=== PATIENT | female | born 1995 | race African-American/Black ===

== ENCOUNTER 2016-10-30 12:15 | Emergency (ER) | payer OTHER ==
[~2016-10-30] VITALS: Ht 160 cm; Wt 77.1 kg
[2016-10-30] MEDS ORDERED: MUCI600T34 PO (12:23)
[2016-10-30] MEDS ORDERED: SUDA1TAB3 PO (12:23)
[2016-10-30 14:42] LABS: BASO % 0.2 % (0.0-1.0); EOS # 0.2 K/mm3 (0.0-0.50); EOS % 1.4 % (0.0-3.0); LARGE UNSTAINED CELL # 0.3 K/mm3 (0.0-0.4); LARGE UNSTAINED CELL % 2.1 % (0.0-4.0); LYMPH # 1.7 K/mm3 (1.5-6.5); LYMPH % 13.9 % (24.0-44.0); MEAN CORPUSCULAR HEMOGLOBIN 31.8 pg (27.0-33.0); MEAN CORPUSCULAR VOLUME 93.5 fl (80.0-96.0); MONO # 0.7 K/mm3 (0.0-0.8); MONO % 5.7 % (0.0-5.0); NEUTROPHILS # 9.3 K/mm3 (1.8-7.7); NEUTROPHILS % 76.7 % (36.0-66.0); PLATELET COUNT, AUTOMATED 340 k/mm3 (150-450); RED CELL DISTRIBUTION WIDTH 12.5 % (11.5-14.5); WHITE BLOOD COUNT 12.1 K/mm3 (4.0-10.0)
[2016-10-30 14:56] LABS: CONTROL LINE MONO INT CTR LINE PRESENT
[2016-10-30 15:01] LABS: ANION GAP 10 MEQ/L (8-16); BLOOD UREA NITROGEN 6 MG/DL (7-18); CALCIUM LEVEL 8.8 MG/DL (8.5-10.1); CARBON DIOXIDE LEVEL 23 MEQ/L (21-32); CHLORIDE LEVEL 104 MEQ/L (98-107); CREATININE FOR GFR 0.57 MG/DL (0.55-1.02); GLOMERULAR FILTRATION RATE > 60.0 (>60); GLUCOSE, FASTING 74 MG/DL (70-105); POTASSIUM SERUM 3.9 MEQ/L (3.5-5.1); SODIUM LEVEL 137 MEQ/L (136-145)
[2016-10-30 16:05] VITALS: BP 117/67
== END 2016-10-30 16:06 | disposition home or self-care (01) ==
LOC: M ED 13:40
DX: O98.513 Other viral diseases complicating pregnancy, third trimester (principal); B34.9 Viral infection, unspecified; Z3A.32 32 weeks gestation of pregnancy

== ENCOUNTER 2016-12-11 11:35 | Outpatient (CLI) | payer OTHER ==
[~2016-12-11] VITALS: Ht 160 cm; Wt 77.0 kg
[~2016-12-11 11:35] MED LIST: MUCI600T37 PO; SUDA1TAB3 PO
[2016-12-11] MEDS ORDERED: PRENTAB9 PO (12:00)
[2016-12-11 12:05] VITALS: BP 117/77
== END 2016-12-11 15:08 | disposition home or self-care (01) ==
LOC: M LDO 11:35
PROVIDERS: ATTEND Advanced Practice Midwife
DX: O47.1 False labor at or after 37 completed weeks of gestation (principal); Z3A.38 38 weeks gestation of pregnancy

== ENCOUNTER 2016-12-11 21:06 | Inpatient (IN) | payer OTHER ==
[~2016-12-11] VITALS: Ht 160 cm; Wt 80.0 kg
[~2016-12-11 21:06] MED LIST changes: +PRENTAB9 PO
[2016-12-11] MEDS ORDERED: LR 1,000 ML IV SCH (21:13)
[2016-12-11 21:14] VITALS: BP 140/79
[2016-12-11 22:08] LABS: MEAN CORPUSCULAR HEMOGLOBIN 31.4 pg (27.0-33.0); MEAN CORPUSCULAR HGB CONC 34.5 g/dl (32.0-36.5); RED CELL DISTRIBUTION WIDTH 13.2 % (11.5-14.5); WHITE BLOOD COUNT 16.4 K/mm3 (4.0-10.0)
[2016-12-11 23:44] VITALS: BP 139/82
[2016-12-11] MEDS ORDERED: OXYTOCIN DRIP 30 UNITS in APPROPRIATE DILUENT 1 EA IV SCH (23:51)
[2016-12-12] MEDS ORDERED: DIBUCAINE 1% OINTMENT 30GM TOP PRN
[2016-12-12] MEDS ORDERED: MEASLES,MUMPS,RUBELLA VACCINE INJ (MMR-II) (90707) SC SCH
[2016-12-12] MEDS ORDERED: RHOGAM 300 MCG (1500 IU) INJ (J2790) IM SCH
[2016-12-12] MEDS ORDERED: PROMETHAZINE 25 MG TAB PO PRN
[2016-12-12] MEDS ORDERED: METHYLERGONOVINE MALEATE 0.2 MG/ML VIAL (J2210) IM PRN
[2016-12-12] MEDS ORDERED: LIDOCAINE 1% MDV INJ 50 ML VIAL INFIL ONE
[2016-12-12] MEDS ORDERED: ONDANSETRON 4MG/2ML VIAL (J2405) IV PRN
[2016-12-12 00:21] VITALS: BP 128/70
[2016-12-12] MEDS: IBUPROFEN 800 MG TAB PO PRN ×2 (01:24→14:57)
[2016-12-12 02:37] VITALS: BP 108/51
[2016-12-12] MEDS: ACETAMINOPHEN 500 MG TAB PO PRN (06:02)
[2016-12-12 06:07] VITALS: BP 116/55
[2016-12-12] MEDS: PRENATAL VITAMINS CHEWABLE TABLET PO SCH (07:36)
[2016-12-12] MEDS: DOCUSATE SODIUM 100 MG CAP PO SCH ×2 (07:36→21:00)
--- NOTE | 2016-12-12 07:46 | IPN ---
DATE: 01/11/2017 This and patient requested circumcision of their male . After discussing the risks and benefits of circumcision, the medical and nonmedical indications, the penile block and aftercare. Signed and witnessed consent form. We await the clearance by the plc programmer.
[2016-12-12 18:00] VITALS: BP 114/56
[2016-12-13] MEDS: IBUPROFEN 800 MG TAB PO PRN (05:51)
[2016-12-13 06:03] VITALS: BP 111/59
[2016-12-13] MEDS: DOCUSATE SODIUM 100 MG CAP PO SCH (08:28)
[2016-12-13] MEDS: PRENATAL VITAMINS CHEWABLE TABLET PO SCH (08:28)
[2016-12-13] MEDS: ACETAMINOPHEN 500 MG TAB PO PRN (08:29)
[2016-12-13] MEDS ORDERED: COLA100C5 PO (08:51)
[2016-12-13] MEDS ORDERED: TYLE500T78 PO (08:52)
[2016-12-13] MEDS ORDERED: IBUP-1114 PO (08:53)
[2016-12-13] MEDS ORDERED: NUPE1OIN2 TOP (08:54)
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
== END 2016-12-13 12:45 | disposition home or self-care (01) | DRG 775 ==
LOC: M LDO 21:06 → M LDI 21:11 → M OBS 12-12 02:34
PROVIDERS: ADMIT Obstetrics & Gynecology; ATTEND Obstetrics & Gynecology
PROC: 10E0XZZ Delivery of Products of Conception, External Approach (ICD-10-PCS; principal; 2016-12-11)
PROC: 0HQ9XZZ Repair Perineum Skin, External Approach (ICD-10-PCS; 2016-12-11)
DX: O70.0 First degree perineal laceration during delivery (principal); Z37.0 Single live birth; Z3A.38 38 weeks gestation of pregnancy

== ENCOUNTER 2017-11-14 18:12 | Emergency (ER) | payer OTHER | END 2017-11-14 19:13 | disposition home or self-care (01) | LOC: M ED 18:12 | DX: M25.552 Pain in left hip (principal); F33.9 Major depressive disorder, recurrent, unspecified | CPT/HCPCS: 73502 ==

== ENCOUNTER 2018-06-18 22:13 | Emergency (ER) | payer OTHER ==
[~2018-06-18] VITALS: Ht 160 cm; Wt 61.4 kg
[~2018-06-18 22:13] MED LIST changes: +COLA100C5 PO; +IBUP-1114 PO; +NUPE1OIN2 TOP; +TYLE500T78 PO
[2018-06-18] MEDS ORDERED: IBUPROFEN 600 MG TAB PO ONE (22:30)
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
[2018-06-18] MEDS ORDERED: IBUP-1022 PO (23:36)
[2018-06-18] MEDS ORDERED: CYCL10TA PO (23:36)
[2018-06-18] MEDS ORDERED: CYCLOBENZAPRINE 10 MG TAB PO ONE (23:45)
[2018-06-18 23:47] VITALS: BP 87/60
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
== END 2018-06-18 23:48 | disposition home or self-care (01) ==
LOC: M ED 22:13
DX: S00.03XA Contusion of scalp, initial encounter (principal); S20.229A Contusion of unspecified back wall of thorax, initial encounter; W01.0XXA Fall on same level from slipping, tripping and stumbling without subsequent striking against object, initial encounter; Y92.410 Unspecified street and highway as the place of occurrence of the external cause

== ENCOUNTER 2018-06-23 07:28 | Emergency (ER) | payer OTHER ==
[~2018-06-23] VITALS: Ht 160 cm; Wt 65.9 kg
[~2018-06-23 07:28] MED LIST changes: +CYCL10TA PO; +IBUP-1022 PO
--- NOTE | 2018-06-23 09:40 | REP ---
PELVIC SONOGRAPHY: HISTORY: History of ovarian cyst. Pelvic discomfort. FINDINGS: Transabdominal and endovaginal scanning are performed. The urinary bladder is poorly filled for the transabdominal images. The uterus is retroverted measuring 7.7 x 4.2 x 5.4 cm. Endometrial echo is 1.4 cm thick. There is moderate free fluid in the cul-de-sac. This contains a few low level echoes. The right ovary measures 4.0 x 2.5 x 4.7 cm. Its Doppler flow is normal. There is a 2.7 x 2.5 x 1.8 cm hypoechoic cyst in the right ovary consistent with a hemorrhagic cyst. Doppler resistive index is 0.42 for the right ovary. Left ovary may is normal measuring 2.5 x 1.7 x 2.3 cm. Its Doppler flow is normal, resistive index 0.60. IMPRESSION: Retroflexed uterus. Moderate free fluid in the cul-de-sac. 2.7 cm hypoechoic right ovarian cyst seen. Otherwise negative. Beta hCG status is not known. Clinical and possibly, sonographic followup advised. Electronically Signed by Corona Monteiro MD 06/23/2018 10:58 A
[2018-06-23] MEDS ORDERED: BACT800T5 PO (09:41)
[2018-06-23 09:44] VITALS: BP 99/56
--- NOTE | 2018-06-24 12:35 | ED PDOC ---
Post-Departure Follow-Up ft judi fp faxed formal report of pelvic us for fu Yung Doshi MD Jun 24, 2018 12:35
== END 2018-06-23 09:47 | disposition home or self-care (01) ==
LOC: M ED 07:28
DX: N30.00 Acute cystitis without hematuria (principal); N83.209 Unspecified ovarian cyst, unspecified side

== ENCOUNTER 2018-06-25 07:48 | Emergency (ER) | payer OTHER ==
[~2018-06-25] VITALS: Ht 160 cm; Wt 65.9 kg
[~2018-06-25 07:48] MED LIST changes: +BACT800T5 PO
[2018-06-25] MEDS ORDERED: NS 1,000 ML IV ONE (08:15)
[2018-06-25] MEDS ORDERED: MORPHINE 4 MG/ML 1ML VIAL/SYRINGE (J2270) IV PRN (08:15)
[2018-06-25] MEDS ORDERED: ONDANSETRON 4MG/2ML VIAL (J2405) IV ONE (08:15)
[2018-06-25] MEDS ORDERED: ACETAMINOPHEN 325 MG/10.15 ML UDC PO ONE (08:30)
[2018-06-25 09:01] LABS: BASO % 0.1 % (0.0-1.0); HEMOGLOBIN 13.5 g/dl (12.0-15.5); LYMPH # 0.8 10^3/uL (1.5-6.5); LYMPH % 11.1 % (24.0-44.0); MEAN CORPUSCULAR HEMOGLOBIN 30.1 pg (27.0-33.0); MEAN CORPUSCULAR HGB CONC 34.6 g/dl (32.0-36.5); MEAN CORPUSCULAR VOLUME 86.9 fl (80.0-96.0); MONO # 0.5 10^3/uL (0.0-0.8); MONO % 7.7 % (0.0-5.0); NEUTROPHILS # 5.6 10^3/uL (1.8-7.7); NEUTROPHILS % 80.7 % (36.0-66.0); PLATELET COUNT, AUTOMATED 245 10^3/uL (150-450); RED BLOOD COUNT 4.49 10^6/uL (4.00-5.40); WHITE BLOOD COUNT 6.9 10^3/uL (4.0-10.0)
[2018-06-25 09:29] LABS: HCG, SERUM QUALITATIVE NEGATIVE (NEGATIVE)
[2018-06-25 09:31] LABS: ALBUMIN 4.2 GM/DL (3.2-5.2); ALT/SGPT 16 U/L (12-78); BILIRUBIN,DIRECT 0.2 MG/DL (0.0-0.2); BILIRUBIN,TOTAL 0.9 MG/DL (0.2-1.0); BLOOD UREA NITROGEN 10 MG/DL (7-18); CALCIUM LEVEL 9.1 MG/DL (8.5-10.1); CARBON DIOXIDE LEVEL 22 MEQ/L (21-32); CHLORIDE LEVEL 103 MEQ/L (98-107); CREATININE FOR GFR 1.02 MG/DL (0.55-1.30); GLOMERULAR FILTRATION RATE > 60.0 (>60); GLUCOSE, FASTING 87 MG/DL (70-100); LIPASE 119 U/L (73-393); POTASSIUM SERUM 3.7 MEQ/L (3.5-5.1); SODIUM LEVEL 134 MEQ/L (136-145); TOTAL PROTEIN 8.4 GM/DL (6.4-8.2)
[2018-06-25] MEDS ORDERED: ISOVUE-370 76% 100ML VIAL (Q9967) As Ordered ONE (09:56)
[2018-06-25] MEDS ORDERED: NORCOTAB PO (10:58)
[2018-06-25] MEDS ORDERED: IBUP80TA PO (10:58)
[2018-06-25 11:01] VITALS: BP 93/44
--- NOTE | 2018-06-25 11:02 | REP ---
CT ABDOMEN AND PELVIS WITH IV CONTRAST: TECHNIQUE: Axial contrast enhanced images from the lung bases to the pubic symphysis using 100 mL Isovue 370 intravenous contrast material with multiplanar reformations. Visualized lung bases demonstrate a calcified granuloma in the right lower lobe just above the diaphragm. The liver demonstrates focal fatty infiltration along the fissure for the ligamentum teres. Spleen, adrenals, pancreas, and kidneys are unremarkable. There is no abdominal aortic aneurysm. I see no adenopathy. There is no free air. There is no appendicitis or bowel wall thickening. In the pelvis there is an oval right ovarian cyst 3 cm in maximum diameter. Left ovary appears grossly unremarkable. There is moderate dense fluid in the cul-de-sac on the right likely representing hemorrhagic fluid from ruptured ovarian cyst. The urinary bladder appears unremarkable. IMPRESSION: Right ovarian cyst 3 cm in diameter with adjacent complex free fluid in the right pelvis. No evidence of appendicitis or other acute finding. Electronically Signed by Darin Browning MD 06/25/2018 07:56 P
[2018-06-25] MEDS ORDERED: ZOFR4TAB14 PO (11:06)
== END 2018-06-25 11:12 | disposition home or self-care (01) ==
LOC: M ED 07:48
DX: N83.201 Unspecified ovarian cyst, right side (principal)
CPT/HCPCS: 74177; 80048; 80076; 83605; 83690; 84703; 85025; 87040; 96361; 96374; 96375; 99284; J2270; J2405; Q9967

== ENCOUNTER 2018-07-20 18:20 | Emergency (ER) | payer OTHER ==
[~2018-07-20] VITALS: Ht 160 cm; Wt 61.4 kg
[~2018-07-20 18:20] MED LIST changes: +IBUP80TA PO; +NORCOTAB PO; +ZOFR4TAB14 PO
[2018-07-20 18:21] VITALS: BP 104/58
[2018-07-20] MEDS ORDERED: ONDANSETRON 4 MG ORAL DISINTEGRATING TAB (Q0162 PER 1MG) PO ONE (18:45)
[2018-07-20] MEDS ORDERED: PROM1SUP2 PR (18:53)
[2018-07-20] MEDS ORDERED: ZOFR4TAB16 PO (18:55)
== END 2018-07-20 19:55 | disposition home or self-care (01) ==
LOC: M ED 18:20
DX: O26.899 Other specified pregnancy related conditions, unspecified trimester (principal); Z3A.00 Weeks of gestation of pregnancy not specified
CPT/HCPCS: 84702; 99282; Q0162

== ENCOUNTER 2018-08-15 15:56 | Emergency (ER) | payer OTHER ==
[~2018-08-15] VITALS: Ht 160 cm; Wt 64.1 kg
[~2018-08-15 15:56] MED LIST changes: +PROM1SUP2 PR; +ZOFR4TAB16 PO
[2018-08-15 16:06] VITALS: BP 131/65
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
[2018-08-15] MEDS ORDERED: IBUP-1022 PO (17:02)
[2018-08-15] MEDS ORDERED: ROBA500T PO (17:02)
== END 2018-08-15 17:06 | disposition home or self-care (01) ==
LOC: M ED 15:56
DX: S16.1XXA Strain of muscle, fascia and tendon at neck level, initial encounter (principal); V49.49XA Driver injured in collision with other motor vehicles in traffic accident, initial encounter; Y92.410 Unspecified street and highway as the place of occurrence of the external cause

== ENCOUNTER 2018-09-25 15:15 | Emergency (ER) | payer OTHER ==
[~2018-09-25] VITALS: Ht 160 cm; Wt 63.6 kg
[~2018-09-25 15:15] MED LIST changes: +HYDR-3715 PO; -NORCOTAB PO; +ROBA500T PO
[2018-09-25] MEDS ORDERED: PREN200C PO (15:19)
[2018-09-25 16:04] LABS: BASO % 0.2 % (0.0-1.0); EOS % 0.6 % (0.0-3.0); HEMATOCRIT 38.7 % (36.0-47.0); HEMOGLOBIN 13.3 g/dl (12.0-15.5); LYMPH % 47.3 % (24.0-44.0); MEAN CORPUSCULAR HEMOGLOBIN 30.8 pg (27.0-33.0); MEAN CORPUSCULAR HGB CONC 34.4 g/dl (32.0-36.5); MEAN CORPUSCULAR VOLUME 89.6 fl (80.0-96.0); MONO # 0.5 10^3/uL (0.0-0.8); MONO % 7.3 % (0.0-5.0); NEUTROPHILS # 2.8 10^3/uL (1.8-7.7); NEUTROPHILS % 44.4 % (36.0-66.0); PLATELET COUNT, AUTOMATED 252 10^3/uL (150-450); RED BLOOD COUNT 4.32 10^6/uL (4.00-5.40); WHITE BLOOD COUNT 6.3 10^3/uL (4.0-10.0)
[2018-09-25 16:28] LABS: BLOOD UREA NITROGEN 8 MG/DL (7-18); CALCIUM LEVEL 8.9 MG/DL (8.5-10.1); CARBON DIOXIDE LEVEL 26 MEQ/L (21-32); CHLORIDE LEVEL 107 MEQ/L (98-107); CREATININE FOR GFR 0.73 MG/DL (0.55-1.30); GLOMERULAR FILTRATION RATE > 60.0 (>60); GLUCOSE, FASTING 84 MG/DL (70-100); HCG, SERUM QUANTITATIVE 7 MIU/ML; POTASSIUM SERUM 3.7 MEQ/L (3.5-5.1); SODIUM LEVEL 138 MEQ/L (136-145)
--- NOTE | 2018-09-25 16:44 | REP ---
Pelvic ultrasound including transabdominal, endovaginal and Doppler ultrasound assessment: The patient complains of pelvic pain. The uterus is retroflexed and normal size measuring 8.6 x 4.9 x 6.0 cm. The myometrium is unremarkable. The endometrium is echogenic and thickened measuring up to 14.6 mm. There is a mobile material in the endometrial canal. There is no Doppler color flow in the endometrium. Therefore, these findings may represent a large endometrial clot. Right ovary: The right ovary measures 3.1 x 2.1 x 2.1 cm. There is a 1.8, 1.6 x 1.2 cm hemorrhagic follicle. There is vascular flow with the Doppler resistive index of the parenchymal arteries measuring 0.45. Left ovary: The left ovary measures 2.9 x 1.8 x 2.6 cm. There is a 1.7 x 1-0.2 x 1.6 hemorrhagic follicle. There is vascular flow with the Doppler resistive index of the parenchymal arteries measuring 0.54. There is a small volume of pelvic free fluid. Impression: Retroverted uterus. Thickened endometrium versus endometrial mass, likely an endometrial clot as discussed. Bilateral ovarian hemorrhagic follicles. Vascular flow in both ovaries. Small volume of pelvic fluid. Electronically Signed by Darin Quiroga MD 09/25/2018 04:36 P
[2018-09-25 17:16] VITALS: BP 115/58
== END 2018-09-25 17:17 | disposition home or self-care (01) ==
LOC: M ED 15:15
DX: R93.89 Abnormal findings on diagnostic imaging of other specified body structures (principal); Z87.42 Personal history of other diseases of the female genital tract; M54.9 Dorsalgia, unspecified

== ENCOUNTER 2018-11-12 18:07 | Emergency (ER) | payer OTHER ==
[~2018-11-12] VITALS: Ht 160 cm; Wt 63.6 kg
[~2018-11-12 18:07] MED LIST changes: +PREN200C PO
[2018-11-12] MEDS ORDERED: PREN29CH2 PO (18:22)
[2018-11-12 19:26] LABS: BASO % 0.4 % (0.0-1.0); EOS # 0.1 10^3/uL (0.0-0.50); EOS % 0.8 % (0.0-3.0); HEMATOCRIT 39.6 % (36.0-47.0); HEMOGLOBIN 13.7 g/dl (12.0-15.5); LYMPH % 37.8 % (24.0-44.0); MEAN CORPUSCULAR HEMOGLOBIN 30.4 pg (27.0-33.0); MEAN CORPUSCULAR HGB CONC 34.6 g/dl (32.0-36.5); MEAN CORPUSCULAR VOLUME 87.8 fl (80.0-96.0); MONO # 0.6 10^3/uL (0.0-0.8); MONO % 6.9 % (0.0-5.0); NEUTROPHILS # 4.3 10^3/uL (1.8-7.7); NEUTROPHILS % 53.8 % (36.0-66.0); PLATELET COUNT, AUTOMATED 286 10^3/uL (150-450); RED BLOOD COUNT 4.51 10^6/uL (4.00-5.40)
[2018-11-12 19:53] LABS: BLOOD UREA NITROGEN 9 MG/DL (7-18); CALCIUM LEVEL 9.2 MG/DL (8.5-10.1); CARBON DIOXIDE LEVEL 27 MEQ/L (21-32); CHLORIDE LEVEL 107 MEQ/L (98-107); CREATININE FOR GFR 0.79 MG/DL (0.55-1.30); GLOMERULAR FILTRATION RATE > 60.0 (>60); GLUCOSE, FASTING 79 MG/DL (70-100); HCG, SERUM QUANTITATIVE 11 MIU/ML; POTASSIUM SERUM 3.9 MEQ/L (3.5-5.1); SODIUM LEVEL 140 MEQ/L (136-145)
--- NOTE | 2018-11-12 20:58 | REP ---
Clinical: Vaginal bleeding for dating and viability. Technique: Transabdominal and transvaginal first trimester obstetrical ultrasound with color Doppler evaluation. Findings: Heterogeneous anteverted uterus measures 8.7 x 4.4 x 4.9 cm. No intrauterine identified. A moderate amount of free fluid is noted within the pelvis and posterior cul-de-sac. The bilateral ovaries are normal in appearance and vascularity without torsion. Left ovary measures 3.2 x 1.6 x 2.1 cm; RI 0.48. The right ovary measures 2.7 x 1.3 x 1.3 cm; RI 0.47. No obvious pelvic mass lesion identified. Impression: 1. No intrauterine . 2. Moderate amount of free fluid in the pelvis. 3. Differential diagnosis includes early as well as missed spontaneous and ectopic which cannot be excluded. Correlation with serial HCG levels recommended and repeat evaluation may be warranted Electronically Signed by Teto Richter MD 11/12/2018 08:50 P
[2018-11-12 21:25] VITALS: BP 128/56
== END 2018-11-12 21:50 | disposition home or self-care (01) ==
LOC: M ED 18:07
DX: O20.0 Threatened abortion (principal); Z87.59 Personal history of other complications of pregnancy, childbirth and the puerperium; Z79.899 Other long term (current) drug therapy

== ENCOUNTER 2019-06-18 21:56 | Emergency (ER) | payer OTHER ==
[~2019-06-18] VITALS: Ht 154.9 cm; Wt 67.1 kg
[~2019-06-18 21:56] MED LIST changes: +PREN29CH2 PO
[2019-06-18 21:57] VITALS: BP 118/66
[2019-06-19] MEDS ORDERED: FLAG500T PO (03:55)
[2019-06-19 05:36] LABS: CHLAMYDIA DNA AMPLIFICATION NEGATIVE (NEGATIVE); GC DNA AMPLIFICATION NEGATIVE (NEGATIVE)
== END 2019-06-19 04:09 | disposition home or self-care (01) ==
LOC: M ED 21:56
DX: O98.511 Other viral diseases complicating pregnancy, first trimester (principal); N76.0 Acute vaginitis; A63.0 Anogenital (venereal) warts; Z3A.10 10 weeks gestation of pregnancy

== ENCOUNTER 2019-12-01 19:05 | Outpatient (CLI) | payer OTHER ==
[~2019-12-01 19:05] MED LIST changes: +CYCL-707 PO; -CYCL10TA PO; +FLAG500T PO
[2019-12-01] MEDS ORDERED: ACETAMINOPHEN 500 MG TAB PO PRN (20:00)
--- NOTE | 2019-12-01 20:09 | IPNPDOC ---
Text Note Date of Service The patient was seen on 12/01/19. NOTE Patient is 24yo at 34wks by patient report. C/o fall on abdomen from tripping at 1800. Hit her knees and arms and right side of head. No LOC. Abdomen does not hurt but has felt tight. No contractions. No loss of fluid or bleeding. Good movement. PE: VS WNL GEN NAD, Comfortable ABD: gravid, NT SVE: Deferred. Perineum dry. FHT: Category 1, 140s, reactive, no decels. contractions x1. A/P: Fetus reassuring. Patient not in labor and no rupture of membranes. Will check an US for placenta, BPP, and GUERA and check a CBC and KB. Will monitor for 4hrs post fall. Caterina Quiroga MD Dec 01, 2019 20:09
[2019-12-01 20:31] LABS: HEMATOCRIT 33.1 % (36.0-47.0); HEMOGLOBIN 11.3 g/dl (12.0-15.5); MEAN CORPUSCULAR HEMOGLOBIN 29.7 pg (27.0-33.0); MEAN CORPUSCULAR HGB CONC 34.1 g/dl (32.0-36.5); MEAN CORPUSCULAR VOLUME 87.1 fl (80.0-96.0); PLATELET COUNT, AUTOMATED 280 10^3/uL (150-450); WHITE BLOOD COUNT 9.9 10^3/uL (4.0-10.0)
--- NOTE | 2019-12-01 21:30 | REPVR ---
PROCEDURE INFORMATION: Exam: US Biophysical Profile Without Non-Stress Test Exam date and time: 12/01/2019 9:06 PM Age: 24 years old Clinical indication: Injury or trauma; Fall; Injury indication: Tripped and fell hitting stomach; Injury date: Today; ; Additional info: R/O abruption TECHNIQUE: Imaging protocol: US biophysical profile without non-stress testing. COMPARISON: US PELVIC NON-OB COMPLETE 09/25/2018 4:05 PM FINDINGS: Heart rate: 147 bpm. Presentation: Single live intrauterine fetus in vertex position. Placenta: Placenta is anterior without evidence of abruption. Amniotic fluid index: 8.8 cm. BIOPHYSICAL PROFILE: Breathin/2 Gross body movements: 2/2 tone: 2/2 Qualitative amniotic fluid: 2/2 Biophysical Profile Score: 8/8 DOPPLER: Umbilical artery Doppler: Umbilical cord peak systolic velocity is 38.8 cm/s. Resistive index is 0.65. SD ratio is 2.8. IMPRESSION: 1. Normal biophysical profile. 2. No evidence of placental abruption. Electronically signed by: Herman Loredo On 12/01/2019 21:30:29 PM
== END 2019-12-01 22:10 | disposition home or self-care (01) ==
LOC: M LDO 19:05
PROVIDERS: ATTEND Obstetrics & Gynecology
DX: Z04.3 Encounter for examination and observation following other accident (principal); W19.XXXA Unspecified fall, initial encounter; O26.893 Other specified pregnancy related conditions, third trimester; R10.30 Lower abdominal pain, unspecified; Z3A.34 34 weeks gestation of pregnancy; Y92.009 Unspecified place in unspecified non-institutional (private) residence as the place of occurrence of the external cause; Y99.8 Other external cause status
CPT/HCPCS: 36415; 59025; 76815; 76819; 76820; 85027; 85460; G0378; G0463

== ENCOUNTER 2020-01-01 11:56 | Inpatient (IN) | payer OTHER ==
[~2020-01-01] VITALS: Ht 157.5 cm; Wt 83.6 kg
[2020-01-01] VITALS (13 sets, daily range): BP systolic 107–133; BP diastolic 57–65
[2020-01-01] MEDS ORDERED: LACTATED RINGER'S 1000 ML IV STA (12:18)
[2020-01-01] MEDS ORDERED: PROMETHAZINE INJ 25 MG/ML VIAL (J2550) IV ONE (12:30)
[2020-01-01] MEDS ORDERED: BUTORPHANOL 2 MG/ML INJ (J0595) IV ONE (12:30)
[2020-01-01 12:48] LABS: BASO % 0.2 % (0.0-1.0); EOS % 0.2 % (0.0-3.0); HEMATOCRIT 34.8 % (36.0-47.0); HEMOGLOBIN 11.7 g/dl (12.0-15.5); LYMPH % 18.9 % (24.0-44.0); MEAN CORPUSCULAR HGB CONC 33.6 g/dl (32.0-36.5); MEAN CORPUSCULAR VOLUME 86.4 fl (80.0-96.0); MONO # 0.9 10^3/uL (0.0-0.8); MONO % 8.4 % (0.0-5.0); NEUTROPHILS # 7.6 10^3/uL (1.5-8.5); NEUTROPHILS % 71.3 % (36.0-66.0); PLATELET COUNT, AUTOMATED 265 10^3/uL (150-450); RED BLOOD COUNT 4.03 10^6/uL (4.00-5.40); WHITE BLOOD COUNT 10.6 10^3/uL (4.0-10.0)
--- NOTE | 2020-01-01 13:03 | HPEPDOC ---
Obstetrical History & Physical General Date of Admission Jan 01, 2020 at 12:09 History of Present Illness S: Erika is a 24yo at 38+5wks gestation, EDC [id number] by LMP/1TUS, who is being admitted to D for labor. She reports contractions since midnight, but became regular and painful around 0700 this AM. She endorses +FM, denies LOF/VB. Blood Type O Positive GBS Negative complicated by Anxiety, overweight, excessive weight gain of 44lbs. OB History: SAB x2; 09/2016 at 38 weeks; pelvis tested to 7lbs 5oz, uncomplicated. Chief Complaint: Contractions, term Information Provided By: Patient Age: 24 : 4 Term: 1 Pre-term: 0 Abortions: 2 Livin Care Care: Good Care Number of Visits: 6 Dating Final EDC: Jan 10, 2020 Final EDC for Daily Update: Jan 10, 2020 Final EDC by: LMP LMP: Apr 05, 2019 Antepartum Course Diagnos(e)s Excessive Weight Gain Height (inches): 62 Pre- weight (lbs.): 140 Admission Weight (lbs.): 184 Change in Weight (lbs.): 44 Past Medical History Past Obstetrical History : Past Obstetrical History: Multigravida DIGITAL PROJECT COORDINATOR History: Human papillomavirus(HPV) Past Medical History Medical History Overweight Surgical History: Other (Bunionectomy) Family History Significant Family History: No pertinent family hx Social History Marital Status: Family situation: Spouse/partner home Psychosocial History: Anxiety * Smoker: non-smoker Alcohol: Denies Drugs: denies Imunizations Tdap status: current Influenza Status: current Allergies Coded Allergies: No Known Allergies (Unverified , 08/15/18) Medications Scheduled Metronidazole (Flagyl) 500 Mg Tablet, 500 MG PO BID No115/Iron/Folic Acid ( 19 Chewable Tablet) 1 Each Tab.chew, 1 TAB PO DAILY Physical Examination Physical Examination GENERAL: Alert and oriented times three. ABDOMEN: Gravid and non-tender to touch. FETUS: Is vertex (VTX) by sterile vaginal examination (SVE). HEART RATE: Regular rate. LUNGS: Observed normal, nonlabored breathing. EXTREMITIES: No edema. Other physical findings O: VSS, afebrile, normotensive FHR 140s, moderate variability, + accels, few variable decelerations CTX by TOCO: unable to asses d/t pt standing. Pt is having regular contractions that are mild to palpation. VE: /-3 Laboratory Data 24H LABS Laboratory Tests 2 01/01/20 12:33: Serology Scanned Report Hepatitis B Testing Pertinent Laboratoy Data Blood Type: O+ RBC Antibody Screen: Negative HIV: Negative Hepatitis B: Negative Rapid Plasma Reagin: Nonreactive Rubella: Immune Varicella: Immune Chlamydia/Gonorrhea: Negative Group B Streptococcus: Negative Cystic Fibrosis: Negative Anatomy Ultrasound Ultrasound Date: Aug 24, 2019 Placenta Location: Anterior Normal Anatomy: Yes Vaginal Examination Presentation: Cephalic presentation Assessment/Plan Assessment A: 24yo at 38+5wks, early labor with regular painful contractions. Category II FHT d/t few variables when standing. GBS negative, O Positive Blood Type. Plan P: Admit to LND, consent for labor, augmentation, delivery, pain medication options, and c/s if appropriate PIV start, admission labs drawn PO and IV hydration IV pain meds; can have epidural if desired when in active labor Expectant management at this time CEFM x2 Close monitoring of maternal/ status Consult with OB if indicated Anticipate KARON ROSE CNM Jan 01, 2020 13:03
--- NOTE | 2020-01-01 17:22 | IPNPDOC ---
Obstetrical Progress Note Date of Service Jan 01, 2020 Subjective S: Erika is a 24yo at 38+5wks, admitted earlier this afternoon for early labor, has received 1x dose of stadol and phenergan for pain control, no desiring more medication. She continues to have regular, painful contractions. Objective O: VSS, afebrile, normotensive FHR 140s, moderate variability, + accels, variable, late and prolonged decelerations noted. First deceleration noted when pt repositioned for cervical exam; she was supine, but repositioned to right lateral; that deceleration was followed by two more decelerations during exam and repositioned to hands and knees, raz to 65. IV bolus and O2 started and FHR recovered. Fetus did recover, but noted to have more decelerations and a prolonged. Interventions continued and fetus tolerating hands/knees and left lateral. VE: 7/80/-2, cervix noted to be swelling; reexamined and AROM at 1655 (clear flu id), followed by FSE and IUPC placement. CTX: q2 Vital Signs Date Time Temp Pulse Resp B/P (MAP) Pulse Ox O2 Delivery O2 Flow Rate FiO2 01/01/20 15:14 97.3 80 18 114/57 (76) Assessment Heart Rate Tracing: Category II Sterile Vaginal Examination Postion/Presentation: Cephalic presentation Assessment and Plan Additional Comments A: 24yo Go at 38+5wks, active labor, cervix swollen d/t bearing down during contractions. Internals placed. Pt status and strip reviewed with Dr. Sandra. Category II FHT with resuscitative measures ongoing. P: Close maternal/ monitoring CEFM x2 Amnioinfusion Consult with OB Anticipate , but C/S if appropriate KARON ROSE CNM Jan 01, 2020 17:22
[2020-01-01] MEDS ORDERED: OXYTOCIN 30 UNITS IN 0.9% NaCl 500ML IV BAG (J2590) As Ordered ONE (17:39)
[2020-01-01 18:00] LABS: CORD GAS ABE A -7.1; CORD GAS ABE V -8.1; CORD GAS HCO3 A 22.1 MEQ/L; CORD GAS HCO3 V 18.9 MEQ/L; CORD GAS O2 SAT A 37.2 %; CORD GAS O2 SAT V 76.7 %; CORD GAS PCO2 A 61.4 mmHg; CORD GAS PH A 7.174 UNITS; CORD GAS PH V 7.251 UNITS; CORD GAS PO2 A 21.2 mmHg; CORD GAS PO2 V 37.7 mmHg; CORD GAS SBC A 17.5 MEQ/L; CORD GAS SBC V 17.6 MEQ/L; CORD GAS TCO2 V 20.3 MEQ/L
[2020-01-01] MEDS ORDERED: IBUPROFEN 600MG TAB PO PRN (18:45)
[2020-01-01] MEDS ORDERED: DOCUSATE SODIUM 100 MG CAP PO PRN (18:45)
[2020-01-01] MEDS ORDERED: ACETAMINOPHEN TAB 650MG DOSE (2X325MG) PO PRN (18:45)
--- NOTE | 2020-01-01 18:45 | DNPDOC ---
[facility] Delivery Note Delivery Note DATE OF DELIVERY: 01/01/2020 at 1743 PREDELIVERY DIAGNOSIS: 38+5wks gestation and labor. Persistent Category II FHT POST DELIVERY DIAGNOSIS: Delivered. PROCEDURE: DOCKING SAW OPERATOR: LANE Rose ANESTHESIA: None ESTIMATED BLOOD LOSS: 150 mL. FINDINGS: 7 pound 7 ounce (3380g) Male , Score 8/9, nuchal cord times one (tight). DELIVERY SUMMARY: Erkia is a 24yo G4 now P2022 s/p labor complicated by persistent Category II FHT d/t deep variables. Upon noticing another prolonged deceleration after amnioinfusion started, I entered room for a progress exam and head noted to be at +2 station, full dilatation. Pt was repositioned and prepped for immediate delivery. I requested Dr. Sandra at the bedside d/t variables with slow return to baseline and in the event I needed assistance to expedite delivery. Once pt pushed, she had strong, effective pushes and delivered a viable male infant over a protected perineum. head delivered REDD and restituted to LOT. Tight nuchal noted and unable to reduce at this time; Right anterior shoulder delivered with ease, followed by left posterior shoulder, then remainder of body delivered and nuchal reduced via somersault maneuver. placed on maternal where he was dried and stimulated. Cord was clamped x2 and cut by myself so could be taken to the warmer for assessment, but quickly perked up and had a strong, lusty cry. was 8/9. Cord gases and cord blood collected. Placenta delivered spontaneously and appeared intact, 3VC. Pitocin bolus started and fundus firm with minimal bleeding. Upon inspection of vagina, cervix, and perineum, only a very minor abrasion on right labia noted, good hemostasis. Family bonding well; anticipate uncomplicated PP course. KARON ROES CNM Jan 01, 2020 18:45
[2020-01-01] MEDS ORDERED: OXYTOCIN DRIP 30 UNITS in IV 1 EA IV SCH (19:30)
[2020-01-01] MEDS: IBUPROFEN 800 MG TAB PO PRN (19:32)
[2020-01-01] MEDS: ACETAMINOPHEN 500 MG TAB PO PRN (20:26)
[2020-01-02 06:00] VITALS: BP 119/69
[2020-01-02] MEDS: PRENATAL VITAMINS CHEWABLE TABLET PO SCH (08:57)
--- NOTE | 2020-01-02 09:02 | IPN ---
DATE: 01/02/2020 day #1. 24-year-old 4, now para 3, admitted at 38 and 5 weeks of gestation in active labor, spontaneous vaginal delivery of a live male infant, 7 pounds 7 ounces, 3380 grams, Apgars of 8 and 9 at one and five minutes respectively. Blood pressure today is 119/69, respirations 17, pulse 80, temperature is 98.0. Admitting hemoglobin 11.7, hematocrit 34.8 and platelets to 265. Arterial blood gas was 7.17, base excess -7.1; venous pH was 7.25, base excess -8.1. We discussed phlebitis, cystitis, mastitis, endometritis and cellulitis; diet, exercise and pain management; perineal, breast and wound care. Presently, she is waiting for neonatology to evaluate the baby and clear the baby for circumcision. Breast-feeding is going well. Plans are for discharge tomorrow morning. Medications were dispensed at [facility]. All questions were answered. 20-minute discussion.
[2020-01-02 18:00] VITALS: BP 116/57
[2020-01-02] MEDS: IBUPROFEN 800 MG TAB PO PRN (23:32)
[2020-01-03 06:18] VITALS: BP 107/53
[2020-01-03] MEDS: PRENATAL VITAMINS CHEWABLE TABLET PO SCH (08:49)
[2020-01-03] MEDS: ACETAMINOPHEN 500 MG TAB PO PRN ×2 (08:50→17:42)
[2020-01-03 18:00] VITALS: BP 117/74
== END 2020-01-03 18:00 | disposition home or self-care (01) | DRG 807 ==
LOC: M LDO 11:56 → M LDI 12:09 → M OBS 20:57
PROVIDERS: ADMIT Registered Nurse Maternal Newborn; ATTEND Registered Nurse Maternal Newborn
PROC: 10E0XZZ Delivery of Products of Conception, External Approach (ICD-10-PCS; principal; 2020-01-01)
DX: O69.1XX0 Labor and delivery complicated by cord around neck, with compression, not applicable or unspecified (principal); Z37.0 Single live birth; Z3A.39 39 weeks gestation of pregnancy; O26.00 Excessive weight gain in pregnancy, unspecified trimester

== ENCOUNTER → 2021-05-19 | Outpatient (CLI) | payer OTHER | LOC: M LABSMTC 09:13 | PROVIDERS: ATTEND Anesthesiology | DX: Z01.812 Encounter for preprocedural laboratory examination (principal); Z20.822 Contact with and (suspected) exposure to COVID-19 ==

== ENCOUNTER 2021-05-24 06:53 | Day surgery (SDC) | payer OTHER ==
[~2021-05-24] VITALS: Ht 157.5 cm; Wt 67.6 kg
[~2021-05-24 06:53] MED LIST changes: +LIDOCAINE 1% MDV 20ML VIAL SQ PRN; +LR 1,000 ML IV ONE; +ceFAZolin SOD 2 GM in IV 1 EA IV ONE
--- OUTSIDE RECORDS SUMMARY | 2021-05-24 06:56 | CCD | Continuity of Care Document ---
Author Author Erika SANTIAGO DPM Organization Unknown Address [address] [place] [address], [facility] [address] [place] [address] Phone [phone] Care Team Providers Care Nps Name Role Phone ArtRebeca mckeon CELESTE AUTM [phone] Problems Active Problems Provider Date Swelling of first metatarsal joint of hallux of right foot A barbra Santiago DPM Onset: 11/14/2020 Social History Type Date Description Comments Sex Unknown ETOH Use Denies alcohol use Tobacco Use Start: Unknown Patient has never smoked Allergies, Adverse Reactions, Alerts Description No Known Drug Allergies Medications Active Medications SIG Qnty Indications Ordering Provide r Date Acetaminophen Extra Strength 500mg Tablets Unknown Diclofenac Sodium 1% Gel Unknown Oxycodone-Acetaminophen 5-325mg Ta blets Take 1 Tablet By Mouth Every 6 Hours as Needed For Pain Unknown Vitamin D3 25mcg (1000 Ut) Tablets Unknown Refresh Celluvisc 1% Gel Unknown Fluconazole 150mg Tablets Take 1 Tablet By Mouth Once For A 1 Time Dose. May Repeat Dose In 72 Hours If Needed. Unknown Metronidazole 0.75% Gel Apply 1 Applicatorful Vaginally Once Nightly AT Bedtime For 7 Nights Unknown Nitrofurantoin Monohydrate/Macrocrystals 100mg Capsules Take 1 Capsule By Mouth Twice Daily For 7 Days Unknown Immunizations Description No Information Available Vital Signs Date Vital Result Comment 02/16/2021 10:35am Height 62 inches 5'2" Weight 150.00 lb BP Systolic 100 mmHg BP Diastolic 62 mmHg Heart Rate 60 /min BMI (Body Mass Index) 27.4 kg/m2 11/10/2020 8:35am Height 62 inches 5'2" Weight 148.00 lb BP Systolic 98 mmHg BP Diastolic 62 mmHg Heart Rate 84 /min BMI (Body Mass Index) 27.1 kg/m2 Results Description No Information Available Procedures Date Code Description Status 02/16/2021 19551 Office/Outpatient Established Lo w MDM 20-29 Min Completed 12/15/2020 84684 Office/Outpatient Established SF MDM 10-19 Min Completed 11/10/2020 84189 Office/Outpatient New Low MDM 30 -44 Minutes Completed 11/10/2020 53372 X-Ray Foot Complete Completed Medical Devices Description No Information Available Encounters Type Date Location Provider Dx Diagnosis Office Visit 02/16/2021 10:30a [facility] Yuan Santiago DPM M21.611 Bunion of right foot T84.84xA Pain due to internal orthope dic prosth dev/grft, init Office Visit 12/15/2020 10:30a [facility] Yuan Santiago DPM M21.611 Bunion of right foot T84.84xA Pain due to internal orthope dic prosth dev/grft, init Office Visit 11/10/2020 10:15a [facility] Yuan Santiago DPM M21.611 Bunion of right foot Assessments Date Code Description Provider 02/16/2021 M21.611 Bunion of right foot Yuan muniz DPM 02/16/2021 T84.84xA Pain due to internal orthopedic prosthetic devices, implants and grafts, initial encounter Yuan Santiago DPM 12/15/2020 M21.611 Bunion of right foot Yuan muniz DPM 12/15/2020 T84.84xA Pain due to internal orthopedic prosthetic devices, implants and grafts, initial encounter Yuan Santiago DPM 11/10/2020 M21.611 Bunion of right foot Yuan muniz DPM Plan of Treatment Future Appointment(s):* 05/26/2021 1:15 pm - Yuan Santiago DPM at [facility] * 05/24/2021 8:00 am - Yuan Santiago DPM at [facility] Functional Status Description No Information Available Mental Status Description No Information Available Referrals Refer to Reason for Referral Status Appt Date Yuan Santiago DPM Created [address] [place], [place] [id number] [phone]
--- OUTSIDE RECORDS SUMMARY | 2021-05-24 06:56 | CCD ---
Author Author [facility] Organization [facility] Address Unknown Phone Unavailable Care Team Providers Care R D Engineer Name Role Phone Norah SANTIAGO DPM Unavailable Unavailable Norah SANTIAGO DPM Unavailable Unavailable Norah SANTIAGO DPM Unavailable Unavailable Norah SANTIAGO DPM Unavailable Unavailable Norah SANTIAGO DPM Unavailable Unavailable Norah SANTIAGO DPM Unavailable Unavailable Norah SANTIAGO DPM Unavailable Unavailable Norah SANTIAGO DPM Unavailable Unavailable Norah SANTIAGO DPM Unavailable Unavailable Norah SANTIAGO DPM Unavailable Unavailable Norah SANTIAGO DPM Unavailable Unavailable Norah SANTIAGO DPM Unavailable Unavailable Norah SANTIAGO DPM Unavailable Unavailable Norah SANTIAGO DPM Unavailable Unavailable Norah SANTIAGO DPM Unavailable Unavailable Noarh SANTIAGO DPM Unavailable Unavailable Norah SANTIAGO DPM Unavailable Unavailable Norah SANTIAGO DPM Unavailable Unavailable Norah SANTIAGO DPM Unavailable Unavailable Norah SANTIAGO DPM Unavailable Unavailable Norah SANTIAGO DPM Unavailable Unavailable Norah SANTIAGO DPM Unavailable Unavailable Norah SANTIAGO DPM Unavailable Unavailable Norah SANTIAGO DPM Unavailable Unavailable Norah SANTIAGO DPM Unavailable Unavailable Norah SANTIAGO DPM Unavailable Unavailable Norah SANTIAGO DPM Unavailable Unavailable Norah SANTIAGO DPM Unavailable Unavailable Norah SANTIAGO DPM Unavailable Unavailable Norah SANTIAGO DPM Unavailable Unavailable Norah SANTIAGO DPM Unavailable Unavailable Norah SANTIAGO DPM Unavailable Unavailable JACK R FITO [facility] Unavailable Unavailable Re-disclosure Warning The records that you are about to access may contain information from federally-assisted alcohol or drug abuse programs. If such information is present, then the following federally mandated warning applies: This information has been disclosed to you from records protected by federal confidentiality rules (42 CFR part 2). The federal rules prohibit you from making any further disclosure of this information unless further disclosure is expressly permitted by the written consent of the person to whom it pertains or as otherwise permitted by 42 CFR part 2. A general authorization for the release of medical or other information is NOT sufficient for this purpose. The Federal rules restrict any use of the information to criminally investigate or prosecute any alcohol or drug abuse patient.The records that you are about to access may contain highly sensitive health information, the redisclosure of which is protected by Article 27-F of the [facility] Public Health law. If you continue you may have access to information: Regarding HIV / AIDS; Provided by facilities licensed or operated by the [facility] Office of Mental Health; or Provided by the [facility] Office for People With Developmental Disabilities. If such information is present, then the following [facility] mandated warning applies: This information has been disclosed to you from confidential records which are protected by state law. State law prohibits you from making any further disclosure of this information without the specific written consent of the person to whom it pertains, or as otherwise permitted by law. Any unauthorized further disclosure in violation of state law may result in a fine or senior living sentence or both. A general authorization for the release of medical or other information is NOT sufficient authorization for further disc losure. Family History Family Member Name Family Member Gender Family Member Status Date o f Status Description Data Source(s) Unknown Male Problem [facility] ([facility]) Encounters Encounter Providers Location Date Indications Data Source(s ) Outpatient Attender: FITO SANTIAGO [facility] Office 07/2020 10:30:00 AM EDT [facility] AM EDT [facility] Outpatient Attender: FITO SANTIAGO [facility] Office 10/16 10:15:00 AM EDT [facility] ([facility] Medications No Information Insurance Providers Payer name Policy type / Coverage type Policy ID Covered constitution party ID Covered constitution party's relationship to arboleda Policy Arboleda Plan Information [facility] ACTIVE DUTY [id number] SP [id number] ADMINISTRATION [id number] SP [id number] [employer] [place] Workers Compensation [id number] Self [id number] [employer] [place] Workers Compensation [id number] Self [id number] ANSI-Not a Secondary Insurance [id number] ANSI-Commercial [id number] ANSI-Commercial [id number] [facility] HUMANA - O/P [id number] 18 [id number] ACTIVE DUTY [id number] SP [id number] N REGIONAL CLAIMS KEVIN -O/P [id number] 18 [id number] [facility] [id number] S [id number] [employer] [facility] REG O [id number] S [id number] [facility] ACTIVE DUTY [id number] SP [id number] [employer] NO FAULT [id number] SP [id number] Problems, Conditions, and Diagnoses Code Display Name Description Problem Type Effective Dates Data Source(s) M21.611 Swelling of first metatarsal joint of garces llux of right foot Swelling of first metatarsal joint of hallux of right foot Problem 021 12:00:00 AM EDT [facility] Surgeries/Procedures Procedure Description Date Indications Data Source(s) OFFICE OUTPATIENT VISIT 15 MINUTES 02/16/2021 12:00:00 AM EDT [facility] OFFICE OUTPATIENT VISIT 10 MINUTES 12/15/2020 12:00:00 AM EDT [facility] RADEX FOOT COMPLETE MINIMUM 3 VIEWS 11/10/2020 12:00:0 0 AM EDT [facility] ([facility] OFFICE OUTPATIENT NEW 30 MINUTES 11/10/2020 12:00:00 A M EDT [facility] Results ID Date Data Source [id number] 05/19/2021 09:00:00 AM EST [facility] Name Value Range Interpretation Code Description Data Magda rce(s) Supporting Document(s) SARS-CoV-2 (COVID-19) RNA [Presence] in Respiratory specimen by COSTA with probe detection Not Detected [facility] This lab was ordered by [facility] and reported by [facility]. Procedure Social History No Information Vital Signs ID Date Data Source UNK Name Value Range Interpretation Code Description Data Source(s) Body height 62 [in_i] 62 [in_i] [facility] 5'2" Body weight 150.00 [lb_av] 150.00 [lb_av] [facility] T ([facility] Systolic blood pressure 100 mm[Hg] 100 mm[Hg] M EDENT ([facility] Diastolic blood pressure 62 mm[Hg] 62 mm[Hg] [facility] ([facility] Heart rate 60 /min 60 /min [facility] ([facility] Body mass index (BMI) [Ratio] 27.4 kg/m2 27.4 k g/m2 [facility] ([facility] Diastolic blood pressure 62 mm[Hg] 62 mm[Hg] [facility] ([facility] Systolic blood pressure 98 mm[Hg] 98 mm[Hg] M EDENT ([facility] Heart rate 84 /min 84 /min [facility] ([facility] Body mass index (BMI) [Ratio] 27.1 kg/m2 27.1 k g/m2 [facility] ([facility] Body height 62 [in_i] 62 [in_i] [facility] 5'2" Body weight 148.00 [lb_av] 148.00 [lb_av] [facility] T ([facility]
[2021-05-24] MEDS ORDERED: LIDOCAINE 1% MDV 20ML VIAL As Ordered ONE (07:52)
[2021-05-24] MEDS ORDERED: BUPIVACAINE HCL 0.5% 10ML VIAL As Ordered ONE (07:53)
[2021-05-24] MEDS ORDERED: MIDAZOLAM INJ 2MG/2ML VIAL (J2250 PER 1MG) As Ordered ONE (08:11)
[2021-05-24] MEDS ORDERED: fentaNYL 100 MCG/2 ML INJECTION (J3010) As Ordered ONE (08:11)
[2021-05-24] MEDS ORDERED: LIDOCAINE 2% 100MG/5ML SDV (FOR ANES.) As Ordered ONE (08:11)
[2021-05-24] MEDS ORDERED: propofoL 200 MG/20 ML VIAL As Ordered ONE (08:11)
[2021-05-24] MEDS ORDERED: ACETAMINOPHEN 1000MG 100ML IV BTL (OFIRMEV) (J0131 PER 10MG) As Ordered ONE (08:44)
[2021-05-24] MEDS ORDERED: KETOROLAC 60MG 2ML VIAL As Ordered ONE (08:50)
[2021-05-24] MEDS ORDERED: ONDANSETRON 4MG/2ML VIAL As Ordered ONE (08:50)
[2021-05-24] MEDS ORDERED: HYDR-3713 PO (09:05)
[2021-05-24 09:45] VITALS: BP 11/62
--- NOTE | 2021-05-24 09:45 | RO ---
OPERATIVE NOTE DATE OF OPERATION: 05/24/2021 PREOPERATIVE DIAGNOSIS: Painful screw, right foot. POSTOPERATIVE DIAGNOSIS: Painful screw, right foot. PROCEDURE: Right foot screw removal. SURGEON: Yuan Barry DPM DIGITAL STRATEGIST SENIOR MANAGER: None. ANESTHESIA: Monitored anesthesia care. Preop injection of 10 mL 1:1 mixture of 1% Lidocaine plain and 0.5% Marcaine plain. ESTIMATED BLOOD LOSS: Minimal. MATERIALS: 4-0 nylon. INJECTABLES: 1 mL Decadron, 4 mg/mL. COMPLICATIONS: None. CONDITION: Stable. DESCRIPTION OF PROCEDURE: Erika Mars is a 26-year-old female who has a painful screw in her right foot from previous bunionectomy. She presents today for screw removal. The patient's site and side were identified and marked in the preoperative area. Consent was reviewed and obtained. All risks, complications and alternatives to the procedure were explained to the patient in detail, and all questions were answered. PROCEDURE: The patient was brought to the operating room and placed on the operating table in the supine position. Monitored anesthesia care was delivered by the anesthesia team. Preop injection of 10 mL of 1:1 mixture of 1% Lidocaine plain and 0.5% Marcaine plain were injected in the right foot. Right foot was prepped and draped in normal sterile fashion. Tourniquet was applied to the right ankle and inflated to 250 mmHg. An incision was made through the previous scar over the first metatarsal. The screw was identified and it was removed using the screw log truck driver. The site was irrigated with normal saline. Incision was repaired with 4-0 nylon. Sterile dressing was applied. Tourniquet was deflated. The patient was brought to PACU with vital signs stable and neurovascular status intact. She will be weightbearing as tolerated and follow up in the office in two days.
== END 2021-05-24 10:00 | disposition home or self-care (01) ==
LOC: M SDC 06:53
PROVIDERS: ATTEND Podiatrist Foot & Ankle Surgery
DX: T84.84XA Pain due to internal orthopedic prosthetic devices, implants and grafts, initial encounter (principal); Y79.2 Prosthetic and other implants, materials and accessory orthopedic devices associated with adverse incidents; R06.83 Snoring
CPT/HCPCS: 20680; 81025; J0131; J0690; J1885; J2250; J2405; J3010

== ENCOUNTER → 2021-08-01 | Outpatient (CLI) | payer OTHER ==
[~2021-08-01] MED LIST changes: +HYDR-3713 PO; -LIDOCAINE 1% MDV 20ML VIAL SQ PRN; -LR 1,000 ML IV ONE; -ceFAZolin SOD 2 GM in IV 1 EA IV ONE
== END ==
LOC: M PLAIMG 14:54
PROVIDERS: ATTEND Orthopaedic Surgery Adult Reconstructive Orthopaedic Surgery
DX: M23.91 Unspecified internal derangement of right knee (principal)

== ENCOUNTER → 2023-07-09 | Outpatient (CLI) | payer OTHER | LOC: M RAD 09:53 | PROVIDERS: ATTEND Nurse Practitioner Family | DX: E04.2 Nontoxic multinodular goiter (principal) ==

== ENCOUNTER 2024-01-22 12:34 | Emergency (ER) | payer OTHER ==
[~2024-01-22] VITALS: Ht 157.5 cm; Wt 70.0 kg
[2024-01-22] MEDS ORDERED: MONI4CRE3 PV (13:03)
[2024-01-22] MEDS ORDERED: FLUC150T9 PO (15:40)
[2024-01-22] MEDS ORDERED: MACR100C43 PO (15:40)
[2024-01-22 15:44] LABS: Trichomonas vaginalis (AMP) NOT DETECTED (NEGATIVE)
[2024-01-22 15:48] VITALS: BP 108/59; TEMP 98.2; O2SAT 100
[2024-01-22 16:08] LABS: GC DNA AMPLIFICATION NEGATIVE (NEGATIVE)
== END 2024-01-22 15:52 | disposition home or self-care (01) ==
LOC: M ED 12:34
DX: N89.8 Other specified noninflammatory disorders of vagina (principal); N39.0 Urinary tract infection, site not specified; E07.9 Disorder of thyroid, unspecified

== ENCOUNTER 2025-03-05 23:50 | Emergency (ER) | payer OTHER ==
[~2025-03-05] VITALS: Ht 157.5 cm; Wt 68.7 kg
[~2025-03-05 23:50] MED LIST changes: +FLUC150T9 PO; -IBUP-1022 PO; +IBUP600T42 PO; +MACR100C43 PO; +MONI4CRE3 PV
[2025-03-06 00:01] VITALS: BP 97/53; TEMP 97.7; O2SAT 100
== END 2025-03-06 03:17 | disposition left against medical advice (07) ==
LOC: M ED 23:50
DX: Z53.21 Procedure and treatment not carried out due to patient leaving prior to being seen by health care provider (principal)

== ENCOUNTER → 2025-04-13 | Outpatient (CLI) | payer OTHER ==
[~2025-04-13] MED LIST changes: +PROHANCE 279.3MG/ML 15ML VIAL As Ordered ONE
== END ==
LOC: M PLARAD 15:42
PROVIDERS: ATTEND Podiatrist Foot & Ankle Surgery
DX: M25.579 Pain in unspecified ankle and joints of unspecified foot (principal); R93.6 Abnormal findings on diagnostic imaging of limbs
CPT/HCPCS: 73720; A9576